=== PATIENT | female | born 1980 | race Caucasian/White ===

== ENCOUNTER 2022-08-28 08:50 | Outpatient (CLI) | payer BC | END 2022-08-28 08:51 | disposition home or self-care (01) | LOC: TBSIIMAG 08:50 | PROVIDERS: ATTEND Student in an Organized Health Care Education/Training Program | DX: S83.411D Sprain of medial collateral ligament of right knee, subsequent encounter (principal); S89.91XD Unspecified injury of right lower leg, subsequent encounter; S80.02XD Contusion of left knee, subsequent encounter; M23.231 Derangement of other medial meniscus due to old tear or injury, right knee; M25.461 Effusion, right knee; M67.51 Plica syndrome, right knee ==

== ENCOUNTER 2023-06-18 07:57 | Outpatient (CLI) | payer BC | END 2023-06-18 07:58 | disposition home or self-care (01) | LOC: BICMAMMO 07:57 | PROVIDERS: ATTEND Student in an Organized Health Care Education/Training Program | DX: Z13.820 Encounter for screening for osteoporosis (principal); S89.91XD Unspecified injury of right lower leg, subsequent encounter; M85.89 Other specified disorders of bone density and structure, multiple sites | CPT/HCPCS: 77080 ==